=== PATIENT | female | born 1995 | race Caucasian/White ===

== ENCOUNTER 2020-09-20 16:19 | Observation (INO) | payer SELFPAY ==
[~2020-09-20] VITALS: Ht 172 cm; Wt 72.6 kg
[2020-09-20 16:40] VITALS: BP 114/58
[2020-09-20] MEDS ORDERED: PRETAB PO (17:39)
[2020-09-20] MEDS ORDERED: FERR75LI22 PO (17:39)
--- NOTE | 2020-09-21 06:48 | NUR ---
PATIENT HAS BEEN SCREENED AND CATEGORIZED LOW NUTRITION RISK. PATIENT WILL BE SEEN WITHIN 7 DAYS OF ADMISSION. 09/27/20 AMADA CANNON MS, RDN
== END 2020-09-20 18:00 | disposition home or self-care (01) ==
LOC: MLD 16:19
PROVIDERS: ADMIT Obstetrics & Gynecology; ATTEND Obstetrics & Gynecology
DX: O26.893 Other specified pregnancy related conditions, third trimester (principal); R10.9 Unspecified abdominal pain; Z3A.30 30 weeks gestation of pregnancy
CPT/HCPCS: 59025; 81000; G0378